=== PATIENT | male | born 1960 | race Caucasian/White ===

== ENCOUNTER 2019-12-16 20:26 | Inpatient (IN) | payer MEDICARE, MEDICAID ==
[~2019-12-16] VITALS: Ht 172.7 cm; Wt 38.8 kg
[2019-12-16] MEDS ORDERED: ASPIRIN 81 MG CHEW (CHILDREN'S ASA) ONE (20:32)
[2019-12-16] MEDS ORDERED: RT-ALBUTEROL/IPRATROPIUM 3 ML (DUONEB) VIAL ONE (20:41)
[2019-12-16] MEDS ORDERED: ASPIRIN 81 MG CHEW (CHILDREN'S ASA) PO ONE (20:45)
[2019-12-16] MEDS ORDERED: RT-ALBUTEROL/IPRATROPIUM 3 ML (DUONEB) VIAL INH ONE (20:45)
[2019-12-16 20:52] LABS: BASOPHILS % (AUTO) 0 % (0-10); EOSINOPHILS % (AUTO) 0 % (0-10); HEMATOCRIT 34 % (40-54); HEMOGLOBIN 11.4 G/DL (13.3-17.7); LYMPHOCYTES # (AUTO) 1.6 X 10^3 (1.0-4.0); LYMPHOCYTES % (AUTO) 9 % (12-44); MEAN CORPUSCULAR HEMOGLOBIN 31 PG (25-34); MEAN CORPUSCULAR HGB CONC 34 G/DL (32-36); MEAN CORPUSCULAR VOLUME 92 FL (80-99); MEAN PLATELET VOLUME 9.7 FL (7.4-10.4); MONOCYTES # (AUTO) 0.9 X 10^3 (0.0-1.0); MONOCYTES % (AUTO) 5 % (0-12); NEUTROPHILS # (AUTO) 14.3 X 10^3 (1.8-7.8); NEUTROPHILS % (AUTO) 85 % (42-75); PLATELET COUNT 263 10^3/uL (130-400); RED CELL DISTRIBUTION WIDTH 13.1 % (10.0-14.5); WHITE BLOOD COUNT 16.8 10^3/uL (4.3-11.0)
[2019-12-16] MEDS ORDERED: LACTATED RINGERS 1,000 ML IV ONE ×4 (20:53→22:18)
--- NOTE | 2019-12-16 20:53 | ED General ---
General Chief Complaint: Respiratory Problems Stated Complaint: COUGH,CP,BACK PAIN Nursing Triage Note: PT AMB TO [facility] 5 WITH COMPLAINT OF COUGH, CHEST PAIN, AND BACK PAIN. STATES HAS BEEN GOING ON FOR 5-6 DAYS. Nursing Sepsis Screen: No Definite Risk Source of Information: Patient, Family Exam Limitations: Physical Impairments (MR) History of Present Illness Date Seen by Provider: Dec 16, 2019 Time Seen by Provider: 20:39 Initial Comments Here with report of cough and congestion as well as some chest pain and not feeling well over the last 5-6 days. Moved here from [place] today. Does have history of MRSA is not very forthcoming with answers but does follow commands and answer some simple questions. No report of vomiting or diarrhea. He does smoke 5 cigarettes a day. Apparently he has had cough and congestion that is worsening. Chest pain as reported by family. The patient is not really reporting that well and I am unable to qualify the pain. Patient does not seem to be uncomfortable currently. Does appear to be ill. Timing/Duration: 5-6 Days Severity: Mild, Moderate Associated Systoms: Chest Pain, Cough, Fever/Chills; No Nausea/Vomiting, No Shortness of Air; Weakness Allergies and Home Medications Allergies Coded Allergies: No Known Drug Allergies (Unverified , 12/16/19) Patient Home Medication List Home Medication List Reviewed: Yes Review of Systems Review of Systems Constitutional: see HPI, chills; No fever; malaise EENTM: no symptoms reported Respiratory: cough; No short of breath; wheezing Cardiovascular: chest pain; No edema Gastrointestinal: No abdominal pain, No nausea, No vomiting Genitourinary: no symptoms reported Musculoskeletal: back pain; No neck pain Skin: no symptoms reported Psychiatric/Neurological: See HPI All Other Systems Reviewed Negative Unless Noted: Yes Past Cpevyur-Lqfivl-Xcunee Hx Past Med/Social Hx: Reviewed Nursing Past Med/Soc Hx Patient Social History Alcohol Use: Occasionally Uses Alcohol Beverage of Choice: Beer Recreational Drug Use: No Smoking Status: Current Everyday Smoker Type Used: Cigarettes Recent Foreign Travel: No Contact w/Someone Who Travel: No Recent Infectious Disease Expo: No Immunizations Up To Date Tetanus Booster (TDap): Unknown PED Vaccines UTD: Yes Past Medical History Surgeries: Yes Eye Surgery Respiratory: No Cardiac: No Neurological: Yes Developmental Disorder Genitourinary: No Gastrointestinal: No Musculoskeletal: No Endocrine: No HEENT: No Family Medical History Reviewed Nursing Family Hx No Pertinent Family Hx Physical Exam-Suspected Sepsis Physical Exam Vital Signs Vital Signs - First Documented 12/16/19 20:31 Temp 37.1 Pulse 99 Resp 20 B/P (MAP) 106/74 (85) Pulse Ox 95 O2 Delivery Room Air Capillary Refill : Less Than 3 Seconds Blood Pressure Mean: 85 Height, Weight, BMI Height: '" Weight: lbs. oz. kg; 14.00 BMI Method: General Appearance: No Apparent Distress, Thin HEENT: PERRL/EOMI, Pharynx Normal, Other (very poor dentition. Bilateral rhinorrhea that is clear with moderate congestion and erythema) Neck: Non Tender, Supple Respiratory: No Respiratory Distress, Expiration, Wheezing (bilateral) Cardiovascular: No Murmur, Tachycardia Gastrointestinal: Non Tender, Soft Back: Normal Inspection, No CVA Tenderness, No Vertebral Tenderness Extremity: Normal Range of Motion, Non Tender Neurologic/Psychiatric: Alert, No Motor/Sensory Deficits, Other (nose self and follows commands. This is baseline per the family.) Skin: normal color, warm/dry Focused Exam Lactate Level 12/16/19 20:38: Lactic Acid Level 1.09 Lactic Acid Level Laboratory Tests Test 12/16/19 20:38 Lactic Acid Level 1.09 MMOL/L (0.50-2.00) Progress/Results/Core Measures Suspected Sepsis Recent Fever Within 48 Hours: No Infection Criteria Present: None New/Unexplained Altered Menta: No Sepsis Screen: No Definite Risk SIRS Temperature: Pulse: 99 Respiratory Rate: 20 Laboratory Tests 12/16/19 20:38: White Blood Count 16.8H Blood Pressure 106 /74 Mean: 85 12/16/19 20:38: Lactic Acid Level 1.09 Laboratory Tests 12/16/19 20:38: Creatinine 0.80, INR Comment 1.0, Platelet Count 263, Total Bilirubin 0.6 Results/Orders Lab Results Laboratory Tests Test 12/16/19 20:38 Range/Units White Blood Count 16.8 H 4.3-11.0 10^3/uL Red Blood Count 3.63 L 4.35-5.85 10^6/uL Hemoglobin 11.4 L 13.3-17.7 G/DL Hematocrit 34 L 40-54 % Mean Corpuscular Volume 92 80-99 FL Mean Corpuscular Hemoglobin 31 25-34 PG Mean Corpuscular Hemoglobin Concent 34 32-36 G/DL Red Cell Distribution Width 13.1 10.0-14.5 % Platelet Count 263 130-400 10^3/uL Mean Platelet Volume 9.7 7.4-10.4 FL Neutrophils (%) (Auto) 85 H 42-75 % Lymphocytes (%) (Auto) 9 L 12-44 % Monocytes (%) (Auto) 5 0-12 % Eosinophils (%) (Auto) 0 0-10 % Basophils (%) (Auto) 0 0-10 % Neutrophils # (Auto) 14.3 H 1.8-7.8 X 10^3 Lymphocytes # (Auto) 1.6 1.0-4.0 X 10^3 Monocytes # (Auto) 0.9 0.0-1.0 X 10^3 Eosinophils # (Auto) 0.0 0.0-0.3 10^3/uL Basophils # (Auto) 0.0 0.0-0.1 10^3/uL Neutrophils % (Manual) 84 % Lymphocytes % (Manual) 8 % Monocytes % (Manual) 2 % Eosinophils % (Manual) 0 % Basophils % (Manual) 0 % Band Neutrophils 5 % Reactive Lymphocytes 1 % Blood Morphology Comment NORMAL Prothrombin Time 13.8 12.2-14.7 SEC INR Comment 1.0 0.8-1.4 Activated Partial Thromboplast Time 33 24-35 SEC Sodium Level 133 L 135-145 MMOL/L Potassium Level 3.5 L 3.6-5.0 MMOL/L Chloride Level 98 98-107 MMOL/L Carbon Dioxide Level 22 21-32 MMOL/L Anion Gap 13 5-14 MMOL/L Blood Urea Nitrogen 21 H 7-18 MG/DL Creatinine 0.80 0.60-1.30 MG/DL Estimat Glomerular Filtration Rate > 60 BUN/Creatinine Ratio 26 Glucose Level 96 70-105 MG/DL Lactic Acid Level 1.09 0.50-2.00 MMOL/L Calcium Level 9.1 8.5-10.1 MG/DL Corrected Calcium 9.5 8.5-10.1 MG/DL Magnesium Level 1.4 L 1.6-2.4 MG/DL Total Bilirubin 0.6 0.1-1.0 MG/DL Aspartate Amino Transf (AST/SGOT) 12 5-34 U/L Alanine Aminotransferase (ALT/SGPT) 15 0-55 U/L Alkaline Phosphatase 90 40-136 U/L Myoglobin 84.6 10.0-92.0 NG/ML Troponin I < 0.028 <0.028 NG/ML Total Protein 6.8 6.4-8.2 GM/DL Albumin 3.5 3.2-4.5 GM/DL Micro Results Microbiology 12/16/19 Influenza Types A,B Antigen ([facility]) - Final, Complete My Orders Orders - MELVI HOLLY MD Influenza A And B Antigens (12/16/19 20:30) Cbc With Automated Diff (12/16/19 20:30) Magnesium (12/16/19 20:30) Chest 1 View, Ap/Pa Only (12/16/19 20:30) Ekg Tracing (12/16/19 20:30) Comprehensive Metabolic Panel (12/16/19 20:30) Myoglobin Serum (12/16/19 20:30) Protime With Inr (12/16/19 20:30) Partial Thromboplastin Time (12/16/19 20:30) O2 (12/16/19 20:30) Monitor-Rhythm Ecg Trace Only (12/16/19 20:30) Lipid Panel (12/17/19 06:00) Ed Iv/Invasive Line Start (12/16/19 20:30) Troponin I (12/16/19 20:30) Aspirin Chewable Tablet (Baby Aspirin Ch (12/16/19 20:45) Aspirin Chewable Tablet (Baby Aspirin Ch (12/16/19 20:32) Blood Culture (12/16/19 20:44) Sputum Culture (12/16/19 20:44) Urinalysis (12/16/19 20:44) Urine Culture (12/16/19 20:44) Vital Signs Adult Sepsis Patie Q15M (12/16/19 20:44) Remove Rings In Anticipation O (12/16/19 20:44) Lactic Acid Analyzer (12/16/19 20:44) Albuterol/Ipra Inhalation Soln (Duoneb I (12/16/19 20:45) Svn Small Volume Nebulizer (12/16/19 20:44) Albuterol/Ipra Inhalation Soln (Duoneb I (2/8/20 20:41) Manual Differential (12/16/19 20:38) Ed Iv/Invasive Line Start (12/16/19 20:56) Lactated Ringers (Lr 1000 Ml Iv Solution (12/16/19 20:56) Lactated Ringers (Lr 1000 Ml Iv Solution (12/16/19 20:53) Ceftriaxone For Iv Use (Rocephin For I (12/16/19 21:30) Azithromycin Injection (Zithromax Inject (12/16/19 21:30) Ketorolac Injection (Toradol Injection) (12/16/19 21:43) Lactated Ringers (Lr 1000 Ml Iv Solution (12/16/19 22:10) Lactated Ringers (Lr 1000 Ml Iv Solution (12/16/19 22:18) Medications Given in ED Current Medications Medications Dose Ordered Sig/Izabela Route Start Time Stop Time Status Last Admin Dose Admin Albuterol/ Ipratropium 3 ml ONCE ONCE INH 12/16/19 20:45 12/16/19 20:46 DC 12/16/19 20:47 3 ML Aspirin 324 mg ONCE ONCE PO 12/16/19 20:45 12/16/19 20:46 DC 12/16/19 20:40 324 MG Lactated Ringer's 1,000 ml @ 0 mls/hr Q0M ONCE IV 12/16/19 20:56 12/16/19 20:57 DC 12/16/19 20:55 1,000 MLS/HR Vital Signs/I&O 12/16/19 20:31 Temp 37.1 Pulse 99 Resp 20 B/P (MAP) 106/74 (85) Pulse Ox 95 O2 Delivery Room Air Capillary Refill : Less Than 3 Seconds Blood Pressure Mean: 85 Progress Note : Progress Note Seen and evaluated. Challenging Evaluation due to patient's underlying MR status. Components of both chest pain and sepsis so those order set initiated. Duo neb ordered. LR 1 L bolus ordered. ASA 324 mg by mouth.Monitor patient. 2129: Left lower lobe pneumonia noted. Rocephin 1 g IV initiated and azithromycin 500 mg IV ordered. I discussed the case with Dr. Hernandez. Given his underlying mental status and that he is needed at [facility] with fairly significant left lower lobe pneumonia, I think he would be better suited in the hospital. Dr. Hernandez agrees. Admit, inpatient status. Discussed with patient and family who agree with the plan. 2229: Patient was noted to have blood pressure of 89/61. Given that he has pneumonia and elevated white count, we will initiate second liter of LR bolus to complete the 30 mL/kg bolus. I suspect he normally is low on his blood pressure but we will go ahead and do the fluid bolus for sepsis considerations. Lactic acid was negative. We are in the initial evaluation process so we will use current lab evaluation. Repeat blood pressure after initiation of second fluid bolus was 92/68. I attest a focused exam at this time. We will continue LR at 150 an hour after fluid boluses. ECG Initial ECG Impression Date: Dec 16, 2019 Initial ECG Impression Time: 20:39 Initial ECG Rate: 91 Initial ECG Rhythm: Normal Sinus Initial ECG Comparisson: No Previous ECG Available Comment Sinus rhythm with left atrial abnormality. Normal axis. No evidence of ST elevation MN. No previous available for comparison. Interpreted by me. Diagnostic Imaging Diagonstic Imaging: Xray Plain Films/CT/US/NM/MRI: chest Comments [facility] [place], [place] NAME: SHRUTHI BARON [facility] REC#: [id number] PT STATUS: REG ER : 1960 PHYSICIAN: MELVI HOLLY MD ADMIT DATE: 12/16/19/ER Draft Date of Exam:12/16/19 CHEST 1 VIEW, AP/PA ONLY INDICATION: Chest pain and cough Portable upright PA view of the chest is obtained. There is no previous study for comparison. There is hazy opacification in the left perihilar region with opacification of the left lung base and associated blunting of left costophrenic sulcus. The right lung appears clear. There is no pneumothorax. IMPRESSION: Left perihilar and basilar infiltrate with probable associated pleural fluid and/or thickening. Findings are suggestive of pneumonitis or atypical pneumonia. Clinical correlation and radiographic follow-up would be of use. Dictated on workstation # [id number] Dict: 12/16/192099 Trans: 12/16/19 2103 [id number] Interpreted by: KIM WATT MD Electronically signed by: Departure Communication (Admissions) Time/Spoke to Admitting Phy: 21:25 Impression Primary Impression: Left lower lobe pneumonia Qualified Codes: J18.1 - Lobar pneumonia, unspecified organism Disposition: ADMITTED INPATIENT Condition: Stable Admissions Decision to Admit Reason: Admit from ER (General) Decision to Admit/Date: Dec 16, 2019 Time/Decision to Admit Time: 21:33 Departure-Patient Inst. Referrals: NO,LOCAL PHYSICIAN (PCP/Family) Primary Care Physician MELVI HOLLY MD Dec 16, 2019 20:53
[2019-12-16 20:58] LABS: PROTHROMBIN TIME PATIENT 13.8 SEC (12.2-14.7)
--- NOTE | 2019-12-16 21:04 | Diagnostic Imaging Report ---
INDICATION: Chest pain and cough Portable upright PA view of the chest is obtained. There is no previous study for comparison. There is hazy opacification in the left perihilar region with opacification of the left lung base and associated blunting of left costophrenic sulcus. The right lung appears clear. There is no pneumothorax. IMPRESSION: Left perihilar and basilar infiltrate with probable associated pleural fluid and/or thickening. Findings are suggestive of pneumonitis or atypical pneumonia. Clinical correlation and radiographic follow-up would be of use. Dictated by: Dictated on workstation # [id number]
[2019-12-16 21:06] LABS: BAND NEUTROPHILS 5 %; BASOPHILS % (MANUAL) 0 %; EOSINOPHILS % (MANUAL) 0 %; LYMPHOCYTES % (MANUAL) 8 %; MONOCYTES % (MANUAL) 2 %; NEUTROPHILS % (MANUAL) 84 %; RBC MORPH NORMAL; REACTIVE LYMPHOCYTES 1 %
[2019-12-16 21:07] LABS: ALANINE AMINOTRANSFERASE 15 U/L (0-55); ALBUMIN 3.5 GM/DL (3.2-4.5); ALKALINE PHOSPHATASE 90 U/L (40-136); BILIRUBIN,TOTAL 0.6 MG/DL (0.1-1.0); BUN/CREATININE RATIO 26; CALCIUM 9.1 MG/DL (8.5-10.1); CARBON DIOXIDE 22 MMOL/L (21-32); CHLORIDE 98 MMOL/L (98-107); GFR ESTIMATED > 60; GLUCOSE 96 MG/DL (70-105); MAGNESIUM 1.4 MG/DL (1.6-2.4); POTASSIUM 3.5 MMOL/L (3.6-5.0); SODIUM 133 MMOL/L (135-145); TOTAL PROTEIN 6.8 GM/DL (6.4-8.2)
[2019-12-16] MEDS ORDERED: AZITHROMYCIN INJECTION 500 MG in NS (IVPB) 250 ML IV ONE (21:30)
[2019-12-16] MEDS ORDERED: cefTRIAXone FOR IV USE 1,000 MG in WATER (STERILE) FOR INJECTION 10 ML IV ONE (21:30)
[2019-12-16] MEDS ORDERED: KETOROLAC 30 MG/ML VIAL IVP STA (21:43)
[2019-12-16] MEDS ORDERED: cefTRIAXone 1,000 MG IV (ROCEPHIN) VIAL ONE (22:03)
[2019-12-16] MEDS ORDERED: NS (IVPB) 250 ML ONE (22:03)
[2019-12-16] MEDS ORDERED: WATER (STERILE) FOR INJECTION 10 ML ONE (22:04)
[2019-12-16] MEDS ORDERED: AZITHROMYCIN 500 MG (ZITHROMAX) VIAL ONE (22:04)
--- NOTE | 2019-12-16 23:30 | NUR ---
SHRUTHI BARON WAS admitted to room 413-1, with an admitting diagnosis of PNEUMONIA, on 12/16/19 from ED via WC, accompanied by FAMILY.SHRUTHI BARON introduced to surroundings, call light, bed controls, phone, TV, temperature control, lights, meal times, smoking policy, visitor policy, side rail policy, bathrooms and showers. Patient Rights given to patient in the handbook.SHRUTHI BARON verbalizes understanding that [facility] is not responsible for the loss or damage to any personal effects or valuables that are kept in the patients posession during their hospitalization. The following Patient Care Plans were discussed with the PT AND FAMILY: Discharge Planning, ,, and . SHRUTHI BARON verbalizes understanding of Interdisciplinary Patient Education.
[2019-12-16] MEDS ORDERED: ONDANSETRON 4 MG/2 ML (SDV) Z0FRAN IVP PRN (23:45)
[2019-12-17] VITALS (8 sets, daily range): BP systolic 90–145; BP diastolic 58–89
[2019-12-17] MEDS: LACTATED RINGERS 1,000 ML IV SCH ×4 (00:55→22:12)
[2019-12-17] MEDS ORDERED: RT-ALBUTEROL/IPRATROPIUM 3 ML (DUONEB) VIAL INH PRN (01:15)
[2019-12-17] MEDS: RT-ALBUTEROL/IPRATROPIUM 3 ML (DUONEB) VIAL INH SCH ×4 (03:08→22:32)
[2019-12-17 05:24] LABS: BASOPHILS % (AUTO) 0 % (0-10); EOSINOPHILS # (AUTO) 0.2 10^3/uL (0.0-0.3); EOSINOPHILS % (AUTO) 1 % (0-10); HEMATOCRIT 28 % (40-54); HEMOGLOBIN 9.6 G/DL (13.3-17.7); LYMPHOCYTES # (AUTO) 1.9 X 10^3 (1.0-4.0); LYMPHOCYTES % (AUTO) 14 % (12-44); MEAN CORPUSCULAR HEMOGLOBIN 32 PG (25-34); MEAN CORPUSCULAR HGB CONC 34 G/DL (32-36); MEAN CORPUSCULAR VOLUME 93 FL (80-99); MEAN PLATELET VOLUME 9.9 FL (7.4-10.4); MONOCYTES # (AUTO) 0.9 X 10^3 (0.0-1.0); MONOCYTES % (AUTO) 6 % (0-12); NEUTROPHILS # (AUTO) 10.8 X 10^3 (1.8-7.8); NEUTROPHILS % (AUTO) 79 % (42-75); PLATELET COUNT 248 10^3/uL (130-400); RED CELL DISTRIBUTION WIDTH 13.1 % (10.0-14.5); WHITE BLOOD COUNT 13.8 10^3/uL (4.3-11.0)
[2019-12-17 05:50] LABS: ALANINE AMINOTRANSFERASE 13 U/L (0-55); ALBUMIN 2.7 GM/DL (3.2-4.5); ALKALINE PHOSPHATASE 67 U/L (40-136); BILIRUBIN,TOTAL 0.3 MG/DL (0.1-1.0); BUN/CREATININE RATIO 23; CALCIUM 8.2 MG/DL (8.5-10.1); CARBON DIOXIDE 22 MMOL/L (21-32); CHLORIDE 105 MMOL/L (98-107); GFR ESTIMATED > 60; GLUCOSE 105 MG/DL (70-105); SODIUM 137 MMOL/L (135-145); TOTAL PROTEIN 5.4 GM/DL (6.4-8.2)
[2019-12-17 06:09] LABS: CHOLESTEROL 83 MG/DL (< 200); HDL CHOLESTEROL 22 MG/DL (40-60); TRIGLYCERIDES 81 MG/DL (<150); VLDL CHOLESTEROL 16 MG/DL (5-40)
[2019-12-17] MEDS: MAGNESIUM 1 GM/100 ML IVPB 100 ML IV SCH ×4 (08:05→10:43)
[2019-12-17] MEDS: POTASSIUM CL 10MEQ/50ML IVPB 50 ML IV SCH ×4 (08:05→10:43)
[2019-12-17] MEDS: cefTRIAXone FOR IV USE 1,000 MG in WATER (STERILE) FOR INJECTION 10 ML IV SCH (08:06)
[2019-12-17] MEDS ORDERED: AZITHROMYCIN INJECTION 500 MG in NS (IVPB) 250 ML IV SCH (10:00)
[2019-12-17] MEDS ORDERED: KCL 20 MEQ TAB (K-DUR) PO ONE (12:00)
--- NOTE | 2019-12-17 13:16 | History & Physical-Hospitalist ---
History of Present Illness HPI/Chief Complaint Arash Khan is a 59-year-old male with no known past medical history who presented with shortness of breath. He he is a poor historian. He reports that he has been having fevers and chills. He reports having a cough with sputum production. He is denies any leg swelling. He denies any orthopnea and PND. He denies any chest pain. He denies any abdominal pain, nausea, vomiting, or diarrhea. He denies any dysuria. He smokes 5 cigarettes per day. Source: patient Exam Limitations: no limitations Date Seen 12/17/19 Time Seen by a Provider: 09:55 Attending Physician Kita Oliva MD PCP No,Local Physician Referring Physician Date of Admission Dec 16, 2019 at 21:30 Home Medications & Allergies Home Medications Reviewed patient Home Medication Reconciliation performed by pharmacy medication reconciliations mold repair technician and/or nursing. Patients Allergies have been reviewed. Allergies Allergies Coded Allergies No Known Drug Allergies (Unverified12/16/19) Past Zhwwzqp-Zjrxzz-Wklcbi Hx Past Med/Social Hx: Reviewed Nursing Past Med/Soc Hx Patient Social History Alcohol Use: Occasionally Uses Number of Drinks Today: 0 Alcohol Beverage of Choice: Beer Recreational Drug Use: No Smoking Status: Current Everyday Smoker Type Used: Cigarettes Physical Abuse Screen: No Sexual Abuse: No Recent Foreign Travel: No Contact w/other who traveled: No Recent Hopitalizations: No Recent Infectious Disease Expo: No Immunizations Up To Date Tetanus Booster (TDap): Unknown Pediatric: Yes Date of Influenza Vaccine: Aug 16, 2019 Seasonal Allergies Seasonal Allergies: No Past Medical History Surgeries: Eye Surgery Neurological: Developmental Disorder Family History Reviewed Nursing Family Hx Diabetes mellitus 19 MOTHER G8 SISTER FHx: atrial fibrillation Hypertension 19 MOTHER No Pertinent Family Hx Review of Systems Constitutional: chills, fever EENTM: no symptoms reported Respiratory: cough, phlegm, short of breath Cardiovascular: no symptoms reported Gastrointestinal: no symptoms reported Genitourinary: no symptoms reported Musculoskeletal: no symptoms reported Skin: no symptoms reported Psychiatric/Neurological: No Symptoms Reported Physical Exam Physical Exam Vital Signs Vital Signs - First Documented 12/16/19 20:31 Temp 37.1 Pulse 99 Resp 20 B/P (MAP) 106/74 (85) Pulse Ox 95 O2 Delivery Room Air Capillary Refill : Less Than 3 Seconds Height, Weight, BMI Height: '" Weight: lbs. oz. kg; 14.61 BMI Method: General Appearance: No Apparent Distress, Cachetic HEENT: PERRL/EOMI, Pharynx Normal Neck: Normal Inspection, Supple Respiratory: No Respiratory Distress, Crackles Cardiovascular: Regular Rate, Rhythm, No Edema, No Murmur Gastrointestinal: Normal Bowel Sounds, Non Tender, Soft Extremity: Normal Inspection, Non Tender, No Pedal Edema Neurologic/Psychiatric: Alert, Oriented x3, No Motor/Sensory Deficits, Normal Mood/Affect Skin: Normal Color, Warm/Dry Results Results/Procedures Labs Laboratory Tests 12/16/19 20:38 12/17/19 04:53 Patient resulted labs reviewed. Imaging: Reviewed Imaging Report Assessment/Plan Admission Diagnosis sepsis due to pneumonia Admission Status: Inpatient Order (span 2 midnights) Reason for Inpatient Admission: sepsis due to pneumonia requiring IV antibiotics Assessment and Plan Sepsis due to pneumonia Gram-positive bacteremia SIRS+ with leukocytosis and tachycardia Chest x-ray revealed left lower lobe pneumonia Blood cultures positive for likely strep (gram-positive cocci in chains) Started on ceftriaxone and azithromycin, continue ceftriaxone continue IV fluids hypokalemia Hypomagnesemia Continue to monitor and replace as needed tobacco abuse Nicotine patch available DVT prophylaxis: Lovenox Diagnosis/Problems Diagnosis/Problems (1) Sepsis due to pneumonia Status: Acute (2) Gram-positive bacteremia Status: Acute (3) Hypokalemia Status: Acute (4) Hypomagnesemia Status: Acute (5) Cachexia Status: Chronic (6) Tobacco abuse Status: Chronic Clinical Quality Measures DVT/VTE Risk/Contraindication: Risk Factor Score Per Nursin RFS Level Per Nursing on Admit: 1=Low/No VTE PPX KITA OLIVA MD Dec 17, 2019 13:16
[2019-12-17] MEDS ORDERED: NICOTINE 7 MG (NICODERM) PATCH TD PRN (13:30)
[2019-12-17] MEDS ORDERED: BISACODYL 10 MG SUPP (DULCOLAX) PR PRN (13:30)
[2019-12-17] MEDS ORDERED: ONDANSETRON 4 MG (ZOFRAN) ORAL DISSOLVE TAB PO PRN (13:30)
[2019-12-17] MEDS ORDERED: MELATONIN 3 MG TABLET PO PRN (13:30)
[2019-12-17] MEDS ORDERED: ANTACID SUSP 30 ML UDC (MYLANTA) PO PRN (13:30)
[2019-12-17] MEDS ORDERED: polyethylene glycoL POWDER 17 GM (MIRALAX) PACK PO PRN (13:30)
[2019-12-17] MEDS: ENOXAPARIN 30 MG/0.3 ML (LOVENOX) SYR SC SCH (14:49)
[2019-12-17] MEDS: SENNOSIDES 8.6 MG (SENOKOT) TAB PO SCH (22:12)
[2019-12-17] MEDS: DOCUSATE SODIUM 100 MG (COLACE) CAP PO SCH (22:12)
[2019-12-18] VITALS: BP 115/68
[2019-12-18] MEDS: RT-ALBUTEROL/IPRATROPIUM 3 ML (DUONEB) VIAL INH SCH ×5 (02:21→21:49)
[2019-12-18 04:00] VITALS: BP 119/75
[2019-12-18 05:58] LABS: BASOPHILS % (AUTO) 0 % (0-10); EOSINOPHILS # (AUTO) 0.4 10^3/uL (0.0-0.3); EOSINOPHILS % (AUTO) 5 % (0-10); HEMATOCRIT 29 % (40-54); HEMOGLOBIN 9.8 G/DL (13.3-17.7); LYMPHOCYTES # (AUTO) 2.3 X 10^3 (1.0-4.0); LYMPHOCYTES % (AUTO) 26 % (12-44); MEAN CORPUSCULAR HEMOGLOBIN 32 PG (25-34); MEAN CORPUSCULAR HGB CONC 34 G/DL (32-36); MEAN CORPUSCULAR VOLUME 94 FL (80-99); MEAN PLATELET VOLUME 9.5 FL (7.4-10.4); MONOCYTES # (AUTO) 1.1 X 10^3 (0.0-1.0); MONOCYTES % (AUTO) 12 % (0-12); NEUTROPHILS # (AUTO) 5.2 X 10^3 (1.8-7.8); NEUTROPHILS % (AUTO) 58 % (42-75); PLATELET COUNT 287 10^3/uL (130-400); RED CELL DISTRIBUTION WIDTH 13.7 % (10.0-14.5); WHITE BLOOD COUNT 9.1 10^3/uL (4.3-11.0)
[2019-12-18 06:20] LABS: BUN/CREATININE RATIO 19; CALCIUM 8.4 MG/DL (8.5-10.1); CARBON DIOXIDE 24 MMOL/L (21-32); CHLORIDE 107 MMOL/L (98-107); CREATININE SERUM 0.53 MG/DL (0.60-1.30); GFR ESTIMATED > 60; GLUCOSE 92 MG/DL (70-105); MAGNESIUM 1.6 MG/DL (1.6-2.4); PHOSPHORUS 2.6 MG/DL (2.3-4.7); POTASSIUM 3.7 MMOL/L (3.6-5.0); SODIUM 138 MMOL/L (135-145)
[2019-12-18 08:00] VITALS: BP 116/65
[2019-12-18] MEDS ORDERED: IBUP-2473 PO (08:24)
--- NOTE | 2019-12-18 09:03 | NUR ---
SPOKE WITH THE PT TO COMPLETE THE MED REC. PT DENIES BEING ON ANY PRESCRIPTION MEDICATION AND STATES HE ONLY TAKE IBUPROFEN PRN I UPDATED HIS PREFERRED PHARMACY.
[2019-12-18] MEDS: cefTRIAXone FOR IV USE 1,000 MG in WATER (STERILE) FOR INJECTION 10 ML IV SCH (09:13)
[2019-12-18] MEDS: DOCUSATE SODIUM 100 MG (COLACE) CAP PO SCH ×2 (09:13→19:31)
[2019-12-18] MEDS: SENNOSIDES 8.6 MG (SENOKOT) TAB PO SCH ×2 (09:13→19:31)
[2019-12-18] MEDS: LACTATED RINGERS 1,000 ML IV SCH (09:14)
[2019-12-18 12:00] VITALS: BP 103/60
--- NOTE | 2019-12-18 13:21 | NUR ---
"RD ASSESSMENT PMHx: unknown PMH except for developmental disorder PT INTERACTION: Pt was awake and pleasant during consult for MST score. Note pt is a poor historian, with PMH of developmental disorder, per chart review. Pt states current appetite is pretty good and has been for some time. Not avg PO intake of 100% of meals, per chart review. Pt states following a regular diet at home and has no issues with chewing/swallowing food. Pt states no recent issues with n/v at this time. Pt states some recent issues with constipation. Note last BM was 12/18 and pt current on bowel regimen of senna BID; and colace BID, per chart review. Pt states no recent wt changes. Note unable to determine recent wt hx, per chart review. Upon visual exam, pt appears to have a small frame with BMI of 15.0. Though pt has small frame, given pt's wt hx and PO intake, pt does not meet criteria for malnutrition per ASPEN guidelines. ABNORMAL NUTRITION-RELATED LAB VALUES LOW: cr 0.53; Ca 8.4 HIGH: Est. kcal needs: 8526-6981 kcal | 30-35 kcal/kg Est. Pro needs: 54-63 g Pro | 1.2-1.4 g Pro/kg PES STATEMENT: Underweight (NC-3.1) related to inadequate energy intake as evidenced by BMI 15 | pt interview (pt is poor historian) | developmental disorder INTERVENTION: Continue with current diet order of Regular diet. Switch current supplementation order of Ensure HP (vary) with meals TID to Ensure Enlive (vary) with meals TID, for increased kcal intake. Ensure Enlive provides 350 kcal and 13 g Pro per serving. Will continue to follow and reassess as pt needs and status change. MONITOR/EVALUATE: PO Intake; Plan of Care; Hydration Status; Weight Status; Lab Values Agnes Shepard, MS, RD, LD"
[2019-12-18] MEDS ORDERED: PATCH REMOVAL TP PRN (13:29)
--- NOTE | 2019-12-18 13:30 | Progress Note - Hospitalist ---
[facility] 12/18/19 1330: Subjective HPI/CC On Admission Date Seen by Provider: Dec 18, 2019 Time Seen by Provider: 08:00 Arash Khan is a 59-year-old male with no known past medical history who presented with shortness of breath. He he is a poor historian. He reports that he has been having fevers and chills. He reports having a cough with sputum production. He is denies any leg swelling. He denies any orthopnea and PND. He denies any chest pain. He denies any abdominal pain, nausea, vomiting, or diarrhea. He denies any dysuria. He smokes 5 cigarettes per day. Subjective/Events-last exam Patient reports that he is having persistent cough that isn't productive. Sammy gonzalez also explains that he is having abdominal pain that is exacerbated with cough. He does complain of SOB and chest pain. He denies any GI/ problems at this time. He stated that he has been able to urinate this morning. Patient has no further complaints. Focused Exam Lactate Level 12/16/19 20:38: Lactic Acid Level 1.09 Respiratory: No Accessory Muscle Use, Crackles (LLL base), Other (Coughing ) Cardiovascular: Regular Rate, Rhythm, No Edema, No Gallop, No JVD, No Murmur, Normal Peripheral Pulses Peripheral Pulses: 2+ Carotid (R), 2+ Carotid (L), 2+ Dorsalis Pedis (R), 2+ Left Dors-Pedis (L), 2+ Radial Pulses (R), 2+ Radial Pulses (L) Skin: normal color, warm/dry Objective Exam Vital Signs Vital Signs Date Time Temp Pulse Resp B/P (MAP) Pulse Ox O2 Delivery O2 Flow Rate FiO2 12/18/19 09:25 95 Room Air 12/18/19 04:00 37.0 92 20 119/75 (90) Capillary Refill : Less Than 3 Seconds General Appearance: Anxious, Cachetic, Mild Distress HEENT: PERRL/EOMI, Pharynx Normal Neck: Non Tender, Supple Respiratory: Crackles, Other (Cough + SOB) Cardiovascular: Regular Rate, Rhythm, No Edema, No Gallop, No JVD, No Murmur, Normal Peripheral Pulses Gastrointestinal: Normal Bowel Sounds, No Organomegaly, No Pulsatile Mass, Soft, Tenderness (diffuse lower abdominal tenderness) Extremity: Normal Capillary Refill, Normal Inspection, Normal Range of Motion, Non Tender, No Calf Tenderness, No Pedal Edema Neurologic/Psychiatric: Alert, Oriented x3, No Motor/Sensory Deficits, Normal 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 Imaging: Reviewed Imaging Report Assessment/Plan Assessment and Plan Assess & Plan/Chief Complaint Assessment: 1. LLL PNA 2. Anemia 3. Chronic smoker Plan: 1. Start ceftriaxone 2. Incentive spirometry + breathing treatments + mucolytic 3. Smoking cessation 4. [facility] 5. Consult dietary to make sure patients caloric needs are met and that he understands how to maintain postdischarge Clinical Quality Measures DVT/VTE Risk/Contraindication: Risk Factor Score Per Nursin RFS Level Per Nursing on Admit: 1=Low/No VTE PPX PHILLIP PENALOZA MD 12/18/19 1613: Assessment/Plan Assessment and Plan Assess & Plan/Chief Complaint Pt had low grade fever this AM of 38.0. Will continue IV abx for one more day. Will need outpatient follow up with [facility] as he does not have insurance. Will consult social service as well. Diagnosis/Problems Diagnosis/Problems (1) Sepsis due to pneumonia Status: Acute (2) Gram-positive bacteremia Status: Acute (3) Tobacco abuse Status: Chronic (4) Cachexia Status: Chronic (5) Left lower lobe pneumonia Status: Acute Qualifiers: Qualified Codes: J18.1 - Lobar pneumonia, unspecified organism Supervisory-Addendum Brief Verification & Attestation Participated in pt care: history, MDM, physical Personally performed: exam, history, MDM, supervision of care Care discussed with: Medical Student Procedures: n/a Results interpretation: Verified all documentation Verification and Attestation of Medical Student E/M Service A medical student performed and documented this service in my presence. I reviewed and verified all information documented by the medical student and made modifications to such information, when appropriate. I personally performed the physical exam and medical decision making. Phillip Penaloza, Dec 18, 2019,16:12 [facility] Dec 18, 2019 13:30 PHILLIP PENALOZA MD Dec 18, 2019 16:13
--- NOTE | 2019-12-18 13:59 | NUR ---
Pastoral care visit.
[2019-12-18] MEDS: ENOXAPARIN 30 MG/0.3 ML (LOVENOX) SYR SC SCH (14:00)
[2019-12-18 16:00] VITALS: BP 109/63
[2019-12-18] MEDS: BENZONATATE 100 MG (TESSALON) CAPSULE PO PRN (20:44)
[2019-12-18] MEDS: guaiFENesin (MUCINEX) 600 MG TAB PO SCH (20:45)
[2019-12-19] VITALS: BP 126/70
[2019-12-19] MEDS: ACETAMINOPHEN 325 MG TABLET PO PRN ×3 (00:03→23:57)
[2019-12-19] MEDS: RT-ALBUTEROL/IPRATROPIUM 3 ML (DUONEB) VIAL INH SCH ×4 (02:17→19:40)
[2019-12-19 06:40] LABS: MEAN PLATELET VOLUME 9.9 FL (7.4-10.4); RED CELL DISTRIBUTION WIDTH 13.7 % (10.0-14.5); WHITE BLOOD COUNT 7.6 10^3/uL (4.3-11.0)
[2019-12-19 07:08] LABS: BUN/CREATININE RATIO 18; CALCIUM 9.1 MG/DL (8.5-10.1); CARBON DIOXIDE 21 MMOL/L (21-32); CHLORIDE 105 MMOL/L (98-107); CREATININE SERUM 0.55 MG/DL (0.60-1.30); GFR ESTIMATED > 60; GLUCOSE 85 MG/DL (70-105); MAGNESIUM 1.7 MG/DL (1.6-2.4); PHOSPHORUS 3.1 MG/DL (2.3-4.7); POTASSIUM 3.9 MMOL/L (3.6-5.0); SODIUM 136 MMOL/L (135-145)
--- NOTE | 2019-12-19 08:02 | Progress Note - Hospitalist ---
[facility] 12/19/19 0802: Subjective HPI/CC On Admission Date Seen by Provider: Dec 19, 2019 Time Seen by Provider: 07:58 Arash Khan is a 59-year-old male with no known past medical history who presented with shortness of breath. He he is a poor historian. He reports that he has been having fevers and chills. He reports having a cough with sputum production. He is denies any leg swelling. He denies any orthopnea and PND. He denies any chest pain. He denies any abdominal pain, nausea, vomiting, or diarrhea. He denies any dysuria. He smokes 5 cigarettes per day. Subjective/Events-last exam Patient reported being in mild distress due to stomach ache with nausea and productive cough with some mild SOB. Patient states that he is still producing a 'really nasty' sputum occasionally on cough. He was actively grabbing his belly on interview and complaining for pain exacerbated by cough. He reports that his appetite has decreased from yesterday and reports feeling nauseated, getting to the point of almost vomiting. Patient states that he is able to void and produce stools without issue. He states that he would be interested in some NSAIDs for belly pain relief. He is unable to describe and rate his abdominal pain upon interview. Focused Exam Lactate Level 12/16/19 20:38: Lactic Acid Level 1.09 Respiratory: Chest Non Tender, Crackles (Left lower lobe of lung ) Cardiovascular: Regular Rate, Rhythm, No Edema, No Gallop, No JVD, No Murmur, Normal Peripheral Pulses Peripheral Pulses: 2+ Carotid (R), 2+ Carotid (L), 2+ Dorsalis Pedis (R), 2+ Left Dors-Pedis (L), 2+ Radial Pulses (R), 2+ Radial Pulses (L) Skin: normal color, warm/dry Objective Exam Vital Signs Vital Signs Date Time Temp Pulse Resp B/P (MAP) Pulse Ox O2 Delivery O2 Flow Rate FiO2 12/19/19 09:08 94 Room Air 12/19/19 08:56 37.4 84 20 106/69 (81) Capillary Refill : Less Than 3 Seconds General Appearance: Cachetic, Mild Distress HEENT: PERRL/EOMI, Pharynx Normal Neck: Non Tender, Supple Respiratory: Chest Non Tender, Crackles Cardiovascular: Regular Rate, Rhythm, No Edema, No Gallop, No JVD, No Murmur, Normal Peripheral Pulses Gastrointestinal: Normal Bowel Sounds, No Organomegaly, No Pulsatile Mass, Soft, Tenderness (Epigastrium and denies heartburn) Neurologic/Psychiatric: Alert, Oriented x3, No Motor/Sensory Deficits, Normal 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 Imaging: Reviewed Imaging Report Assessment/Plan Assessment and Plan Assess & Plan/Chief Complaint 1. LLL PNA - Continue Cetriaxone IV - Incentive spirometry + breathing treatments - Mucolytics and antitussives for cough - Throat lasagne PRN - Follow up with [facility] in 1 week 2. Anemia - continue to monitor CBC daily 3. Abdominal Pain - Epigastric - UA to exclude UTI - Antitussives if cough exacerbates pain 3. Chronic smoker - Smoking cessation 4. Malnutrition - Nutrition was talked with social work Clinical Quality Measures DVT/VTE Risk/Contraindication: Risk Factor Score Per Nursin RFS Level Per Nursing on Admit: 1=Low/No VTE PPX PHILLIP PENALOZA MD 12/19/19 1410: Diagnosis/Problems Diagnosis/Problems (1) Left lower lobe pneumonia Status: Acute Qualifiers: Qualified Codes: J18.1 - Lobar pneumonia, unspecified organism (2) Sepsis due to pneumonia Status: Acute (3) Gram-positive bacteremia Status: Acute (4) Tobacco abuse Status: Chronic (5) Cachexia Status: Chronic Supervisory-Addendum Brief Verification & Attestation Participated in pt care: history, MDM, physical Personally performed: exam, history, MDM, supervision of care Care discussed with: Medical Student Procedures: n/a Results interpretation: Verified all documentation Verification and Attestation of Medical Student E/M Service A medical student performed and documented this service in my presence. I reviewed and verified all information documented by the medical student and made modifications to such information, when appropriate. I personally performed the physical exam and medical decision making. Phillip Penaloza, Dec 19, 2019,14:09 [facility] Dec 19, 2019 08:02 PHILLIP PENALOZA MD Dec 19, 2019 14:10
[2019-12-19] MEDS: cefTRIAXone FOR IV USE 1,000 MG in WATER (STERILE) FOR INJECTION 10 ML IV SCH (08:30)
[2019-12-19] MEDS: DOCUSATE SODIUM 100 MG (COLACE) CAP PO SCH ×2 (08:31→20:09)
[2019-12-19] MEDS: guaiFENesin (MUCINEX) 600 MG TAB PO SCH ×2 (08:31→20:06)
--- NOTE | 2019-12-19 08:49 | Diagnostic Imaging Report ---
CLINICAL INDICATION: Patient with pneumonia. Exam: Portable chest x-ray upright view. Comparisons: Chest x-ray dated 12/16/2019. Findings: Lungs/pleura: There is slight improved aeration of the left lung base with residual small amount of infiltrate remaining. The remainder of the lungs are clear. There is no pneumothorax. There is no pleural effusion. Mediastinum: Unremarkable. Pulmonary vasculature: Unremarkable. Heart: Unremarkable. Bones/extrathoracic soft tissue: Unremarkable. Impression: There is slight improved aeration of the left lower lobe infiltrate with residual small amount of infiltrate remaining concerning for pneumonia. Dictated by: Dictated on workstation # [id number]
[2019-12-19 08:56] VITALS: BP 106/69
[2019-12-19] MEDS: SENNOSIDES 8.6 MG (SENOKOT) TAB PO SCH ×2 (09:00→20:09)
--- NOTE | 2019-12-19 09:38 | Speech Therapy Progress Note ---
Therapy Progress Note ST to dc cognitive evaluation order due to patient functioning within his range. Patient has a developmental disorder and is within his "normal" range of function. TRISTIAN HARKINS Dec 19, 2019 09:38
[2019-12-19] MEDS: ENOXAPARIN 30 MG/0.3 ML (LOVENOX) SYR SC SCH (14:37)
[2019-12-19 16:00] VITALS: BP 118/60
--- NOTE | 2019-12-19 16:15 | NUR ---
CM/SS visited with the patient for social service consult. The patient kept falling asleep during the visit therefore this SS could not obtain much information. The patient is currently living in [place], [place] with his brother, Mal Lawrence. He states he is not currently working at this time but him and his brother do receive financial assistance. The patient stated that the assistance they get is sufficient and he feels he has plenty of money and resources to last him the month. He also verbalized that he has not lived in [place] for long and does not have [place] Medicaid. However, the patient does have Medicare. Rosita from [employer] stated the patient will have to call and cancel his [place] Medicaid and then apply for [place]. Will inform and discuss with the patient at next visit. No other needs at this time.
[2019-12-19] MEDS: BENZONATATE 100 MG (TESSALON) CAPSULE PO PRN (20:11)
[2019-12-19 20:42] VITALS: BP 112/66
[2019-12-19 23:56] VITALS: BP 118/64
[2019-12-20] MEDS: RT-ALBUTEROL/IPRATROPIUM 3 ML (DUONEB) VIAL INH SCH ×2 (01:51→10:08)
[2019-12-20 05:23] LABS: BUN/CREATININE RATIO 20; CALCIUM 8.2 MG/DL (8.5-10.1); CARBON DIOXIDE 23 MMOL/L (21-32); CHLORIDE 104 MMOL/L (98-107); CREATININE SERUM 0.56 MG/DL (0.60-1.30); GFR ESTIMATED > 60; GLUCOSE 80 MG/DL (70-105); MAGNESIUM 1.7 MG/DL (1.6-2.4); POTASSIUM 3.6 MMOL/L (3.6-5.0); SODIUM 136 MMOL/L (135-145)
--- NOTE | 2019-12-20 07:31 | Progress Note - Hospitalist ---
Subjective HPI/CC On Admission Date Seen by Provider: Dec 20, 2019 Time Seen by Provider: 07:24 Arash Khan is a 59-year-old male with no known past medical history who presented with shortness of breath. He he is a poor historian. He reports that he has been having fevers and chills. He reports having a cough with sputum p roduction. He is denies any leg swelling. He denies any orthopnea and PND. He denies any chest pain. He denies any abdominal pain, nausea, vomiting, or diarrhea. He denies any dysuria. He smokes 5 cigarettes per day. Subjective/Events-last exam Mr. Khan was pleasant and cooperative this morning. He stated that he slept ok, but did have a fever last night, has improved since after he was given Acetaminophen. He states that his breathing and cough are improving. His abdominal pain is still present on cough, but reduced. His appetite is better and denies feeling nauseated. He says he has no issues voiding or stooling. The patient has no other concerns to voice at this time. Focused Exam Respiratory: Chest Non Tender, No Accessory Muscle Use, No Respiratory Distress Cardiovascular: Regular Rate, Rhythm, No Edema, No Gallop, No JVD, No Murmur, Normal Peripheral Pulses Peripheral Pulses: 2+ Radial Pulses (R), 2+ Radial Pulses (L) Skin: normal color, warm/dry Objective Exam Vital Signs Vital Signs Date Time Temp Pulse Resp B/P (MAP) Pulse Ox O2 Delivery O2 Flow Rate FiO2 12/20/19 08:00 36.2 72 18 98/58 (71) 96 Nasal Cannula 2.00 Capillary Refill : Less Than 3 SecondsLess Than 3 Seconds General Appearance: No Apparent Distress, Cachetic HEENT: PERRL/EOMI, Pharynx Normal, Moist Mucous Membranes Neck: Non Tender Respiratory: Chest Non Tender, No Accessory Muscle Use, No Respiratory Distress, Crackles (still present at the LL base but improving ) Cardiovascular: Regular Rate, Rhythm, No Edema, No Gallop, No JVD, No Murmur, Normal Peripheral Pulses Gastrointestinal: Normal Bowel Sounds, No Organomegaly, No Pulsatile Mass, Soft, Tenderness (epigastrium, but improving ) Extremity: Normal Capillary Refill, Normal Inspection, Non Tender, No Calf Tenderness, No Pedal Edema Neurologic/Psychiatric: Alert, Oriented x3, No Motor/Sensory Deficits, Normal 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 Imaging: Reviewed Imaging Report Assessment/Plan Assessment and Plan Assess & Plan/Chief Complaint 1. LLL PNA - Continue Cetriaxone IV -- switch to oral for possible release - Incentive spirometry - Mucolytics and antitussives for cough - Follow up with [facility] in 1 week 2. Anemia -- stable 3. Abdominal Pain - Epigastric - Antitussives if cough exacerbates pain, slowly improving 3. Chronic smoker - Smoking cessation 4. Malnutrition - Nutrition was talked with social work - Bring up possible help at home when visiting with [facility] Clinical Quality Measures DVT/VTE Risk/Contraindication: Risk Factor Score Per Nursin RFS Level Per Nursing on Admit: 1=Low/No VTE PPX [facility] Dec 20, 2019 07:31
[2019-12-20] MEDS: guaiFENesin (MUCINEX) 600 MG TAB PO SCH (07:43)
[2019-12-20] MEDS: DOCUSATE SODIUM 100 MG (COLACE) CAP PO SCH (07:43)
[2019-12-20] MEDS: BENZONATATE 100 MG (TESSALON) CAPSULE PO PRN (07:43)
[2019-12-20] MEDS: cefTRIAXone FOR IV USE 1,000 MG in WATER (STERILE) FOR INJECTION 10 ML IV SCH (07:43)
[2019-12-20] MEDS: SENNOSIDES 8.6 MG (SENOKOT) TAB PO SCH (07:44)
[2019-12-20 08:00] VITALS: BP 98/58
--- NOTE | 2019-12-20 10:02 | Discharge Summary ---
[facility] 12/20/19 1002: Diagnosis/Chief Complaint Date of Admission Dec 16, 2019 at 21:30 Date of Discharge 12/20/2019 Discharge Date: Dec 20, 2019 Admission Diagnosis sepsis due to pneumonia Primary Care No,Local Physician Discharge Diagnosis LLL PNA, Sepsis, Cachexia (1) Left lower lobe pneumonia Status: Acute (2) Sepsis due to pneumonia Status: Acute (3) Gram-positive bacteremia Status: Acute (4) Tobacco abuse Status: Chronic (5) Cachexia Status: Chronic Discharge Summary Discharge Physical Exam Allergies: Coded Allergies: No Known Drug Allergies (Unverified , 12/16/19) Vitals & I&Os Vital Signs Date Time Temp Pulse Resp B/P (MAP) Pulse Ox O2 Delivery O2 Flow Rate FiO2 12/20/19 08:00 36.2 72 18 98/58 (71) 96 Nasal Cannula 2.00 General Appearance: No Apparent Distress, Cachetic Respiratory: Chest Non Tender, Lungs Clear, No Accessory Muscle Use, No Respiratory Distress Cardiovascular: Regular Rate, Rhythm, No Edema, No Gallop, No JVD, No Murmur, Normal Peripheral Pulses Gastrointestinal: Normal Bowel Sounds, No Organomegaly, No Pulsatile Mass, Soft Extremity: Normal Capillary Refill, Normal Inspection, Normal Range of Motion, Non Tender, No Calf Tenderness, No Pedal Edema Skin: Normal Color, Warm/Dry Neurologic/Psychiatric: Alert, Oriented x3, No Motor/Sensory Deficits, Normal 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 CXR showed a LLL PNA that tested positive for S. Pneumo as well as blood cultures, yielding the same growth. He was started on IV Ceftriaxone, PRN breathing treatment, incentive spirometry with help of mucolytics and anti-tussives. Patient deve loped abdominal epigastric pain, but has since resolved with the Tessalon pearls. Patient stopped senna due to complaint of diarrhea. Patient state he is overall improving. Labs (last 24 hrs) Laboratory Tests 12/20/19 04:20: Sodium Level 136, Potassium Level 3.6, Chloride Level 104, Carbon Dioxide Level 23, Anion Gap 9, Blood Urea Nitrogen 11, Creatinine 0.56L, Estimat Glomerular Filtration Rate > 60, BUN/Creatinine Ratio 20, Glucose Level 80, Calcium Level 8.2L, Phosphorus Level 3.0, Magnesium Level 1.7 Microbiology 12/16/19 Blood Culture - Preliminary, Resulted No growth 12/16/19 Influenza Types A,B Antigen ([facility]) - Final, Complete Patient resulted labs reviewed. Pending Labs Laboratory Tests 12/20/19 04:20: Sodium Level 136, Potassium Level 3.6, Chloride Level 104, Carbon Dioxide Level 23, Anion Gap 9, Blood Urea Nitrogen 11, Creatinine 0.56, Estimat Glomerular Filtration Rate > 60, BUN/Creatinine Ratio 20, Glucose Level 80, Calcium Level 8.2, Phosphorus Level 3.0, Magnesium Level 1.7 Imaging: Reviewed Imaging Report Discussion & Recommendations Discharge Planning: >30 minutes discharge planning 1. Follow-up at [facility] in 1 week 2. 10 days of Keflex 500 mg BID PO 3. Possible smoking cessation 4. Maintain nutritional level Discharge Home Medications: Active Scripts Active Reported Ibuprofen 200 Mg Tablet 800 Mg PO Q8H PRN Instructions to patient/family Please see electronic discharge instructions given to patient. Clinical Quality Measures DVT/VTE Risk/Contraindication: Risk Factor Score Per Nursin RFS Level Per Nursing on Admit: 1=Low/No VTE PPX PHILLIP PENALOZA MD 12/20/192032: Discharge Summary Discharge Physical Exam Allergies: Coded Allergies: No Known Drug Allergies (Unverified , 12/16/19) Supervisory-Addendum Brief Verification & Attestation Participated in pt care: history, MDM, physical Personally performed: exam, history, MDM, supervision of care Care discussed with: Medical Student Procedures: n/a Results interpretation: Verified all documentation Verification and Attestation of Medical Student E/M Service A medical student performed and documented this service in my presence. I reviewed and verified all information documented by the medical student and made modifications to such information, when appropriate. I personally performed the physical exam and medical decision making. Phillip Penaloza, Dec 20, 2019,20:33 Problem Qualifiers (1) Left lower lobe pneumonia: Pneumonia type: due to unspecified organism Qualified Codes: J18.1 - Lobar pneumonia, unspecified organism [facility] Dec 20, 2019 10:02 PHILLIP PENALOZA MD Dec 20, 2019 20:33
[2019-12-20] MEDS ORDERED: CEPH-507 PO (13:54)
--- NOTE | 2019-12-20 13:56 | Discharge Inst-Simple/Standard ---
Discharge Inst-Standard Patient Instructions/Follow Up Plan of Care/Instructions/FU: Please continue to take her medications as written. Please follow up with the primary care provider within the next week to follow up this hospital stay. Activity as Tolerated: Yes Discharge Diet: No Restrictions Return to The Hospital For: Fever, chills, cough, shortness of breath, chest pain, if you feel you're getting worse. PHILLIP JEFFREY MD Dec 20, 2019 13:56
[2019-12-20] MEDS: ENOXAPARIN 30 MG/0.3 ML (LOVENOX) SYR SC SCH (13:59)
[2019-12-20 14:12] VITALS: BP 98/58
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
== END 2019-12-20 15:00 | disposition home or self-care (01) | DRG 871 ==
LOC: ER 20:28 → 4TH 21:30
PROVIDERS: ADMIT Internal Medicine; ATTEND Internal Medicine
DX: A40.3 Sepsis due to Streptococcus pneumoniae (principal); J13 Pneumonia due to Streptococcus pneumoniae; R64 Cachexia; E46 Unspecified protein-calorie malnutrition; K52.1 Toxic gastroenteritis and colitis; Z68.1 Body mass index [BMI] 19.9 or less, adult; E87.6 Hypokalemia; E83.42 Hypomagnesemia; F79 Unspecified intellectual disabilities; F17.210 Nicotine dependence, cigarettes, uncomplicated; Z86.14 Personal history of Methicillin resistant Staphylococcus aureus infection; D64.9 Anemia, unspecified; T47.2X5A Adverse effect of stimulant laxatives, initial encounter
CPT/HCPCS: 36415; 71045; 80048; 80053; 80061; 82607; 82728; 82746; 83540; 83605; 83735; 83874; 84100; 84484; 85007; 85025; 85027; 85610; 85730; 87040; 87077; 87804; 93005; 93041; 94640; 94664; 94760; 96361; 96365; 96375